=== PATIENT | female | born 1950 | race Caucasian/White ===

== ENCOUNTER 2018-06-21 15:49 | Inpatient (IN) | payer MEDICARE ==
[~2018-06-21] VITALS: Ht 154.9 cm; Wt 41.8 kg
--- NOTE | ~2018-06-21 | EKG ---
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
[2018-06-21] MEDS ORDERED: K-TAB10 MEQ PO (16:53)
[2018-06-21] MEDS ORDERED: LOSARTAN POTAS100 M1 PO (16:53)
[2018-06-21] MEDS ORDERED: METOPROLOL SUCC50 M1 PO (16:53)
[2018-06-21] MEDS ORDERED: ESTRADIOL1 EACH TD (16:54)
[2018-06-21] MEDS ORDERED: HYDROCHLOROTH12.5 M2 PO (16:56)
[2018-06-21 17:00] VITALS: BP 158/76
[2018-06-21 17:53] LABS: BASO % 0.5 % (0.0-1.0); HEMATOCRIT 43.3 % (37.0-47.0); HEMOGLOBIN 14.2 g/dl (12.0-16.0); LYMPH # 1.8 10*3/uL (1.3-4.4); LYMPH % 21.5 % (27.0-41.0); MEAN CORPUSCULAR HGB 29.5 pg (27.0-31.0); MEAN CORPUSCULAR HGB CONC 32.8 g/dl (33.0-37.0); MEAN PLATELET VOLUME 12.5 fl (9.6-12.3); MONO # 0.6 10*3/uL (0.1-1.0); MONO % 7.3 % (3.0-9.0); NEUT % 70.5 % (47.0-73.0); PLATELET COUNT AUTOMATED 156 10*3/uL (130-400); RED BLOOD COUNT 4.81 10*6/uL (4.10-5.10); RED CELL DISTRI WIDTH 14.6 % (0-14.5); WHITE BLOOD COUNT 8.5 10*3/uL (4.8-10.8)
[2018-06-21 18:00] LABS: BILIRUBIN NEGATIVE (NEGATIVE); BLOOD TRACE-LYSED (NEGATIVE); CLARITY CLEAR (CLEAR); COLOR YELLOW (YELLOW); GLUCOSE NEGATIVE (NEGATIVE); KETONE NEGATIVE (NEGATIVE); LEUKO ESTERASE NEGATIVE (NEGATIVE); NITRITE NEGATIVE (NEGATIVE); PH 7.5 (5.0-9.0); UROBILINOGEN 0.2 E.U./dl (0.2-1.0)
[2018-06-21 18:07] LABS: ALKALINE PHOSPHATASE 57 U/L (45-117); BUN 8 mg/dl (7-24); CHLORIDE 101 mmol/L (98-107); CREATININE 0.67 mg/dL (0.55-1.02); POTASSIUM 3.4 mmol/L (3.5-5.1); SGOT/AST 18 IU/L (3-35); SGPT/ALT 22 U/L (12-78); SODIUM 137 mmol/L (136-145); TOTAL PROTEIN 7.8 gm/dL (6.4-8.2)
[2018-06-21 18:09] LABS: URINE AMPHETAMINES < 1000 (1000ng/ml); URINE BARBITURATES < 200 (200ng/ml); URINE BENZODIAZEPINES < 200 (200ng/ml); URINE CANNABINOIDS (THC) < 50 (50ng/ml); URINE COCAINE < 300 (300ng/ml); URINE METHADONE < 300 (300ng/ml); URINE OPIATES < 300 (300ng/ml)
[2018-06-21 18:11] LABS: URINE PHENCYCLIDINE < 25 (25ng/ml)
[2018-06-21 18:11] LABS: ETHYL ALCOHOL < 3.0 mg/dl (<3)
[2018-06-21 18:14] LABS: BACTERIA 1+; EPITHELIAL CELLS 45-50; RBC 0-2 rbc/hpf (0-2)
[2018-06-21 20:00] VITALS: BP 112/74
[2018-06-22] VITALS: BP 127/57
[2018-06-22 08:00] VITALS: BP 110/62
[2018-06-22 12:00] VITALS: BP 123/64
[2018-06-22 16:00] VITALS: BP 125/55
[2018-06-22 20:15] VITALS: BP 118/63
[2018-06-23] VITALS: BP 109/59
[2018-06-23 08:00] VITALS: BP 127/68
[2018-06-23 12:00] VITALS: BP 137/62
[2018-06-23 16:00] VITALS: BP 122/76
[2018-06-23 20:00] VITALS: BP 150/74
[2018-06-24] VITALS: BP 131/61
[2018-06-24 04:00] VITALS: BP 131/59
[2018-06-24 07:03] LABS: BASO % 0.7 % (0.0-1.0); HEMATOCRIT 37.1 % (37.0-47.0); HEMOGLOBIN 12.1 g/dl (12.0-16.0); LYMPH # 2.2 10*3/uL (1.3-4.4); LYMPH % 37.4 % (27.0-41.0); MEAN CELL VOLUME 91.4 fl (81.0-99.0); MEAN CORPUSCULAR HGB 29.8 pg (27.0-31.0); MEAN CORPUSCULAR HGB CONC 32.6 g/dl (33.0-37.0); MEAN PLATELET VOLUME 13.5 fl (9.6-12.3); MONO # 0.7 10*3/uL (0.1-1.0); MONO % 11.3 % (3.0-9.0); NEUT # 2.9 10*3/uL (2.3-7.9); NEUT % 50.4 % (47.0-73.0); PLATELET COUNT AUTOMATED 123 10*3/uL (130-400); RED BLOOD COUNT 4.06 10*6/uL (4.10-5.10); RED CELL DISTRI WIDTH 14.5 % (0-14.5); WHITE BLOOD COUNT 5.8 10*3/uL (4.8-10.8)
[2018-06-24 07:11] LABS: CREATININE 0.74 mg/dL (0.55-1.02)
[2018-06-24 08:00] VITALS: BP 137/73
[2018-06-24] MEDS ORDERED: TRAZODONE50 MG PO ×2 (08:59→15:20)
[2018-06-24] MEDS ORDERED: ATARAX,VISTARIL50 MG PO ×2 (11:02→15:20)
== END 2018-06-24 12:37 | disposition home or self-care (01) | DRG 897 ==
LOC: 5E 15:49 → 4E 15:49
PROVIDERS: Internal Medicine
DX: F11.23 Opioid dependence with withdrawal (principal); E44.0 Moderate protein-calorie malnutrition; Z68.1 Body mass index [BMI] 19.9 or less, adult; I10 Essential (primary) hypertension; G89.4 Chronic pain syndrome; Z72.0 Tobacco use; Z90.49 Acquired absence of other specified parts of digestive tract; Z90.710 Acquired absence of both cervix and uterus; Z90.722 Acquired absence of ovaries, bilateral; Z80.1 Family history of malignant neoplasm of trachea, bronchus and lung; Z82.49 Family history of ischemic heart disease and other diseases of the circulatory system; Z88.0 Allergy status to penicillin; Z79.899 Other long term (current) drug therapy; Z88.1 Allergy status to other antibiotic agents; Z88.8 Allergy status to other drugs, medicaments and biological substances; Z88.6 Allergy status to analgesic agent